=== PATIENT | female | born 1985 | race African-American/Black ===

== ENCOUNTER 2017-02-18 17:48 | Emergency (ER) | payer OTHER ==
[~2017-02-18] VITALS: Ht 170.2 cm; Wt 77.1 kg
== END 2017-02-18 19:02 | disposition home or self-care (01) ==
LOC: CED 17:48
DX: S13.4XXA Sprain of ligaments of cervical spine, initial encounter (principal); S33.5XXA Sprain of ligaments of lumbar spine, initial encounter; G44.209 Tension-type headache, unspecified, not intractable; V43.52XA Car driver injured in collision with other type car in traffic accident, initial encounter; Y92.410 Unspecified street and highway as the place of occurrence of the external cause
CPT/HCPCS: 99283